=== PATIENT | female | born 1970 | race Caucasian/White ===

== ENCOUNTER 2016-04-23 19:05 | Emergency (ER) | payer SELFPAY ==
[2016-04-23] MEDS ORDERED: PREDNISONE 20 MG TABLET PO ONE (20:08)
[2016-04-23] MEDS ORDERED: IPRATROPIUM/ALBUTEROL 0.5-2.5 MG/3 ML AMPUL NEB ONE (20:09)
--- NOTE | 2016-04-23 20:11 | ER Document Report ---
ED Medical Screen (RME) - General Stated Complaint: FLU LIKE SYMPTOMS Notes: 45 year old smoker, c/o being sick x2 weeks, cough has worsened, some chills and body aches, sinus pain. Has home inhaler. Not had influenza vaccine. TRAVEL OUTSIDE OF THE [place] IN LAST 30 DAYS: No - Related Data Allergies/Adverse Reactions: No Known Allergies Allergy (Verified 12/24/15 08:08) Past Medical History Pulmonary Medical History: Reports: Hx Bronchitis Past Surgical History: Reports: Hx Orthopedic Surgery - Immunizations Hx Diphtheria, Pertussis, Tetanus Vaccination: No Physical Exam - Vital signs Vitals: Temp Pulse Resp BP Pulse Ox 99.4 F 104 H 17 117/87 H 95 04/23/16 19:54 04/23/16 19:54 04/23/16 19:54 04/23/16 19:54 04/23/16 19:54 - General General appearance: Appears well In distress: None - Respiratory Respiratory status: No respiratory distress. No: Labored, Tachypnea Breath sounds: Nonproductive cough, Other - coarse breath sounds, good air movement, very faint end expiratory wheeze Course - Vital Signs Vital signs: Temp Pulse Resp BP Pulse Ox 99.4 F 104 H 17 117/87 H 95 04/23/16 19:54 04/23/16 19:54 04/23/16 19:54 04/23/16 19:54 04/23/16 19:54
--- NOTE | 2016-04-23 21:15 | ER Document Report ---
ED General - General Chief Complaint: Flu Symptoms Stated Complaint: FLU LIKE SYMPTOMS Time seen by provider: 21:10 Notes: Patient is a 45 -year-old female that comes emergency department for chief complaint of 2 weeks of cough, chills, body aches, sinus pressure and pain. Patient smokes daily, has inhalers at home, unsure if she has a history of COPD diagnosed. Patient states she is coughing up yellow mucus. She has not had influenza vaccine. She denies any daily medications. Patient states she has been menopausal for 3 years. TRAVEL OUTSIDE OF THE [place] IN LAST 30 DAYS: No - Related Data Allergies/Adverse Reactions: No Known Allergies Allergy (Verified 12/24/15 08:08) Past Medical History - General Information source: Patient - Social History Smoking Status: Current Every Day Smoker Chew tobacco use (# tins/day): No Frequency of alcohol use: Occasional Drug Abuse: None Lives with: Family Family History: Reviewed & Not Pertinent Patient has suicidal ideation: No Patient has homicidal ideation: No Pulmonary Medical History: Reports: Hx Bronchitis Renal/ Medical History: Denies: Hx Peritoneal Dialysis Past Surgical History: Reports: Hx Orthopedic Surgery - Immunizations Hx Diphtheria, Pertussis, Tetanus Vaccination: No Review of Systems - Review of Systems Constitutional: See HPI EENT: See HPI Cardiovascular: No symptoms reported Respiratory: See HPI Gastrointestinal: No symptoms reported Genitourinary: No symptoms reported Female Genitourinary: No symptoms reported Musculoskeletal: No symptoms reported Skin: No symptoms reported Hematologic/Lymphatic: No symptoms reported Neurological/Psychological: No symptoms reported Physical Exam - Vital signs Vitals: Temp Pulse Resp BP Pulse Ox 99.4 F 104 H 17 117/87 H 95 04/23/16 19:54 04/23/16 19:54 04/23/16 19:54 04/23/16 19:54 04/23/16 19:54 Interpretation: Normal - General General appearance: Appears well, Alert In distress: None - HEENT Head: Normocephalic, Atraumatic Eyes: Normal Pupils: PERRL - Respiratory Respiratory status: No respiratory distress. No: Respiratory distress, Depressed respirations, Tachypnea Chest status: Nontender Breath sounds: Nonproductive cough, Other - Coarse breath sounds throughout Chest palpation: Normal - Cardiovascular Rhythm: Regular, Tachycardia - Borderline Heart sounds: Normal auscultation, S1 appreciated, S2 appreciated Murmur: No - Abdominal Inspection: Normal Distension: No distension Bowel sounds: Normal Tenderness: Nontender. No: Tender, Guarding - Back Back: Normal, Nontender. No: Tender - Extremities General upper extremity: Normal inspection, Nontender, Normal color, Normal ROM , Normal temperature General lower extremity: Normal inspection, Nontender, Normal color, Normal ROM , Normal temperature, Normal weight bearing. No: Kita's sign - Neurological Neuro grossly intact: Yes Cognition: Normal Orientation: AAOx4 [place] Coma Scale Eye Opening: Spontaneous [place] Coma Scale Verbal: Oriented [place] Coma Scale Motor: Obeys Commands Yang Coma Scale Total: 15 Speech: Normal Motor strength normal: LUE, RUE, LLE, RLE Sensory: Normal - Psychological Associated symptoms: Normal affect, Normal mood - Skin Skin Temperature: Warm Skin Moisture: Dry Skin Color: Normal Course - Re-evaluation Re-evalutation: Nonproductive cough, some coarse breath sounds initially, these resolved after DuoNeb treatment, afterwards patient states she feels significantly improved. Influenza negative, chest x-ray negative. Patient with tobacco abuse, persistent cough that has become productive, patient also has developing tenderness in her sinuses which are noted on exam, covering with azithromycin, treating for bronchitis with prednisone. Discussed smoking cessation detail, patient states that she quit, discussed x-ray abnormalities lack of pneumonia, discussed follow-up and return precautions. Patient states understanding and agreement. - Vital Signs Vital signs: Temp Pulse Resp BP Pulse Ox 98.4 F 97 16 104/67 97 04/23/16 22:13 04/23/16 22:13 04/23/16 22:13 04/23/16 22:13 04/23/16 22:18 Discharge - Discharge Clinical Impression: Productive cough, Tobacco abuse Sinusitis Qualifiers: Sinusitis location: unspecified location Chronicity: acute Recurrence: not specified as recurrent Qualified Code(s): J01.90 - Acute sinusitis, unspecified Condition: Stable Disposition: HOME, SELF-CARE Additional Instructions: Chest x-ray does not show pneumonia. Examination is consistent with sinus infection and bronchitis. Take azithromycin as directed, prednisone as directed, take the Lillian if needed for pain and cough. Drink plenty of fluids. Stop smoking. Follow-up with primary care. Return to the emergency department for any concerning or worsening symptoms. Prescriptions: Azithromycin [Zithromax 250 mg Tablet] 250 mg PO ASDIR PRN #6 tablet PRN Reason: Hydrocodone/Acetaminophen [Lillian 5-325 mg Tablet] 1 - 2 tab PO ASDIR #12 tablet Prednisone 20 mg PO DAILY #15 tablet Forms: Return to Work
[2016-04-23] MEDS ORDERED: HYDROCODONE/ACETAMINOPHEN 5-325 MG 6 TAB/DSPK PO PRN (21:34)
[2016-04-23 22:18] VITALS: BP 104/67
== END 2016-04-23 22:21 | disposition home or self-care (01) ==
LOC: ER 19:05
DX: R05 Cough (principal); J01.90 Acute sinusitis, unspecified; R68.83 Chills (without fever); R52 Pain, unspecified; R09.89 Other specified symptoms and signs involving the circulatory and respiratory systems; F17.200 Nicotine dependence, unspecified, uncomplicated
CPT/HCPCS: 94640; 99284; 87804; 71020; J7512; J7620

== ENCOUNTER 2016-08-19 04:35 | Emergency (ER) | payer SELFPAY ==
[2016-08-19] MEDS ORDERED: IPRATROPIUM/ALBUTEROL 0.5-2.5 MG/3 ML AMPUL NEB ONE (07:07)
[2016-08-19] MEDS ORDERED: PREDNISONE 20 MG TABLET PO ONE (07:07)
[2016-08-19] MEDS ORDERED: ALBUTEROL SULFATE 0.083% NEB 2.5 MG/3 ML AMPUL NEB ONE (07:07)
--- NOTE | 2016-08-19 07:55 | RADIOLOGY REPORT (SQ) ---
EXAM DESCRIPTION: CHEST PA/LAT COMPLETED DATE/TIME: 08/19/2016 7:39 am REASON FOR STUDY: sob COMPARISON: 04/23/2016. 12/24/2015. 02/03/2016. EXAM PARAMETERS: NUMBER OF VIEWS: two views TECHNIQUE: Digital Frontal and Lateral radiographic views of the chest acquired. RADIATION DOSE: NA LIMITATIONS: none FINDINGS: LUNGS AND PLEURA: Small scattered atelectasis or scar bilaterally and small right perihila r nodularity or vessel on end artifact without suspicious interval change. Moderate emphysematous hy perinflation. MEDIASTINUM AND HILAR STRUCTURES: No masses or contour abnormalities. HEART AND VASCULAR STRUCTURES: Heart normal size. No evidence for failure. BONES: No acute findings. HARDWARE: None in the chest. OTHER: No other significant finding. IMPRESSION: No suspicious interval change. TECHNICAL DOCUMENTATION: JOB ID: [id number] [employer]- All Rights Reserved
[2016-08-19] MEDS ORDERED: DOXYCYCLINE HYCLATE 100 MG TABLET PO ONE (08:42)
[2016-08-19] MEDS ORDERED: ALBUTEROL SULFATE HFA (90 MCG/PUFF) 8 GM MDI (1 MDI/ER DISP) IH ONE (09:29)
--- NOTE | 2016-08-19 09:38 | ER Document Report ---
ED General - General Chief Complaint: Cold Symptoms Stated Complaint: COUGH,BODY ACHES Time Seen by Provider: 08/19/16 07:03 TRAVEL OUTSIDE OF THE [place] IN LAST 30 DAYS: No - HPI Patient complains to provider of: Shortness of breath difficulty in breathing Notes: Patient coming in for evaluation of shortness of breath productive cough. Patient is a smoker has been diagnosed with COPD. Patient states feeling bad for approximately 1 week he had fevers and chills no recent travel. Patient denies any chest pain abdominal pain nausea vomiting diarrhea. Patient denies any recent use of antibiotics - Related Data Allergies/Adverse Reactions: No Known Allergies Allergy (Verified 08/19/16 07:06) Past Medical History - Social History Smoking Status: Current Every Day Smoker Cigarette use (# per day): No Chew tobacco use (# tins/day): No Frequency of alcohol use: Occasional Drug Abuse: None Family History: Reviewed & Not Pertinent Patient has suicidal ideation: No Patient has homicidal ideation: No Pulmonary Medical History: Reports: Hx Bronchitis - previous Renal/ Medical History: Denies: Hx Peritoneal Dialysis Past Surgical History: Reports: Hx Orthopedic Surgery - L ankle - Immunizations Hx Diphtheria, Pertussis, Tetanus Vaccination: No Review of Systems - Review of Systems Constitutional: No symptoms reported EENT: No symptoms reported Cardiovascular: No symptoms reported Respiratory: Short of breath Gastrointestinal: No symptoms reported Genitourinary: No symptoms reported Female Genitourinary: No symptoms reported Musculoskeletal: No symptoms reported Skin: No symptoms reported Hematologic/Lymphatic: No symptoms reported Neurological/Psychological: No symptoms reported -: Yes All other systems reviewed and negative Physical Exam - Vital signs Vitals: Temp Pulse Resp BP Pulse Ox 99 F 89 20 112/80 95 08/19/16 04:47 08/19/16 04:47 08/19/16 04:47 08/19/16 04:47 08/19/16 04:47 Interpretation: Normal - General General appearance: Appears well, Alert - HEENT Head: Normocephalic, Atraumatic Eyes: Normal Pupils: PERRL - Respiratory Respiratory status: No respiratory distress Chest status: Nontender Breath sounds: Productive cough, Rhonchi, Wheezing Chest palpation: Normal - Cardiovascular Rhythm: Regular Heart sounds: Normal auscultation Murmur: No - Abdominal Inspection: Normal Distension: No distension Bowel sounds: Normal Tenderness: Nontender Organomegaly: No organomegaly - Back Back: Normal, Nontender - Extremities General upper extremity: Normal inspection, Nontender, Normal color, Normal ROM , Normal temperature General lower extremity: Normal inspection, Nontender, Normal color, Normal ROM , Normal temperature, Normal weight bearing. No: Kita's sign - Neurological Neuro grossly intact: Yes Cognition: Normal Orientation: AAOx4 [place] Coma Scale Eye Opening: Spontaneous Yang Coma Scale Verbal: Oriented Yang Coma Scale Motor: Obeys Commands [place] Coma Scale Total: 15 Speech: Normal Motor strength normal: LUE, RUE, LLE, RLE Sensory: Normal - Psychological Associated symptoms: Normal affect, Normal mood - Skin Skin Temperature: Warm Skin Moisture: Dry Skin Color: Normal Course - Re-evaluation Re-evalutation: 08/19/16 14:09 Chest x-ray negative for any acute process. Patient was given a breathing treatment steroids and a dose of doxycycline here. More likely patient has significant bronchitis patient was encouraged to stop smoking patient will be discharged home with treatment for bronchitis patient states understanding 08/19/16 14:10 5 minutes of smoking cessation education was given to the patient. - Vital Signs Vital signs: Temp Pulse Resp BP Pulse Ox 98.5 F 96 17 98/61 L 91 L 08/19/16 09:57 08/19/16 09:57 08/19/16 09:57 08/19/16 09:57 08/19/16 09:57 Discharge - Discharge Clinical Impression: Bronchitis, Tobacco use, Smoking cessation education Condition: Good Disposition: HOME, SELF-CARE Instructions: Stop Smoking ([facility]), Bronchitis ([facility]), Inhaled Bronchodilators ( [facility]), Doxycycline ([facility]) Additional Instructions: Please use the inhaler that we gave you here today 2 puffs every 4 hours for the next 5 days take steroids and antibiotics as prescribed. Very important to stop smoking today and your symptoms. He may take Tylenol Motrin for pain control. Return to the ER symptoms worsen Prescriptions: Doxycycline Hyclate 100 mg PO BID #14 capsule Prednisone [Deltasone 20 mg Tablet] 3 tab PO DAILY 5 Days Forms: Return to Work Referrals: MARIELLE MCCABE MD [Primary Care Provider] - Follow up in 3-5 days
[2016-08-19 10:03] VITALS: BP 98/61
== END 2016-08-19 10:15 | disposition home or self-care (01) ==
LOC: ER 04:35
DX: J44.9 Chronic obstructive pulmonary disease, unspecified (principal); F17.200 Nicotine dependence, unspecified, uncomplicated
CPT/HCPCS: 94640 ×2; 99283; 71020; J7512; J3490; J7620

== ENCOUNTER 2019-02-17 14:34 | Emergency (ER) | payer SELFPAY ==
[2019-02-17] MEDS ORDERED: METOCLOPRAMIDE HCL INJ/PF 10 MG/2 ML SDV IV ONE (16:00)
--- NOTE | 2019-02-17 16:02 | ER Document Report ---
ED Medical Screen (RME) - General Chief Complaint: Dizziness Stated Complaint: BODY PAIN/DIZZINESS Time Seen by Provider: 02/17/19 15:56 Primary Care Provider: MARIELLE MCCABE MD [Primary Care Provider] - Follow up as needed Notes: Patient is a 48-year-old female who presents to the emergency department with a chief complaint of dizziness. Patient has also had a cough for the past week. Patient states that she started getting dizzy this morning and she also feels nauseous. She has not vomited. Exam: Awake alert and oriented. I have greeted and performed a rapid initial assessment of this patient. A comprehensive ED assessment and evaluation of the patient, analysis of test results and completion of medical decision making process will be conducted by an additional ED providers. TRAVEL OUTSIDE OF THE [place] IN LAST 30 DAYS: No - Related Data Allergies/Adverse Reactions: No Known Allergies Allergy (Verified 02/17/19 15:51) Past Medical History - Social History Chew tobacco use (# tins/day): No Frequency of alcohol use: None Drug Abuse: None Pulmonary Medical History: Reports: Hx Bronchitis - previous Renal/ Medical History: Denies: Hx Peritoneal Dialysis Past Surgical History: Reports: Hx Orthopedic Surgery - L ankle - Immunizations Hx Diphtheria, Pertussis, Tetanus Vaccination: No Physical Exam - Vital signs Vitals: Temp Pulse Resp BP Pulse Ox 98.1 F 63 16 98/68 L 98 02/17/19 14:42 02/17/19 14:42 02/17/19 14:42 02/17/19 14:42 02/17/19 14:42 Course - Vital Signs Vital signs: Temp Pulse Resp BP Pulse Ox 98.1 F 63 16 98/68 L 98 02/17/19 14:42 02/17/19 14:42 02/17/19 14:42 02/17/19 14:42 02/17/19 14:42 Doctor's Discharge - Discharge Referrals: MARIELLE MCCABE MD [Primary Care Provider] - Follow up as needed
[2019-02-17 16:51] LABS: ABSOLUTE BASOPHILS # (AUTO) 0.1 10^3/uL (0.0-0.2); ABSOLUTE EOSINOPHILS # (AUTO) 0.1 10^3/uL (0.0-0.6); ABSOLUTE LYMPHOCYTES (AUTO) 1.7 10^3/uL (0.5-4.7); ABSOLUTE MONOCYTES (AUTO) 0.5 10^3/uL (0.1-1.4); ABSOLUTE NEUT (AUTO) 5.8 10^3/uL (1.7-8.2); BASOPHILS % (AUTO) 0.9 % (0-2); EOSINOPHILS % (AUTO) 0.7 % (0-6); HEMATOCRIT 44.9 % (36.0-47.0); HEMOGLOBIN 15.5 g/dL (12.0-15.5); LYMPHOCYTES % (AUTO) 20.6 % (13-45); MEAN CORPUSCULAR HEMOGLOBIN 31.1 pg (27.0-33.4); MEAN CORPUSCULAR HGB CONC 34.4 g/dL (32.0-36.0); MEAN CORPUSCULAR VOLUME 90 fl (80-97); MONOCYTES % (AUTO) 6.3 % (3-13); PLATELET COUNT 319 10^3/uL (150-450); RED BLOOD COUNT 4.97 10^6/uL (3.72-5.28); RED CELL DISTRIBUTION WIDTH 12.4 % (11.5-14.0); SEGMENTED NEUTROPHILS % (AUTO) 71.5 % (42-78); TOTAL CELLS COUNTED % (AUTO) 100 %; WHITE BLOOD COUNT 8.1 10^3/uL (4.0-10.5)
--- NOTE | 2019-02-17 17:06 | RADIOLOGY REPORT (SQ) ---
EXAM DESCRIPTION: CHEST 2 VIEWS COMPLETED DATE/TIME: 02/17/2019 4:50 pm REASON FOR STUDY: dizziness COMPARISON: Chest radiographs 08/19/2016 EXAM PARAMETERS: NUMBER OF VIEWS: two views TECHNIQUE: Digital Frontal and Lateral radiographic views of the chest acquired. RADIATION DOSE: NA LIMITATIONS: none FINDINGS: LUNGS AND PLEURA: Scattered areas of scarring, unchanged. No new opacities, masses or pne umothorax. No pleural effusion. MEDIASTINUM AND HILAR STRUCTURES: No masses or contour abnormalities. HEART AND VASCULAR STRUCTURES: Heart normal size. No evidence for failure. BONES: No acute findings. HARDWARE: None in the chest. OTHER: No other significant finding. IMPRESSION: Unchanged chest. No acute pulmonary findings. TECHNICAL DOCUMENTATION: JOB ID: [id number] [employer]- All Rights Reserved Reading location - IP/workstation name: [email or web address]
[2019-02-17 17:10] LABS: ALBUMIN 4.5 g/dL (3.5-5.0); ALKALINE PHOSPHATASE 88 U/L (38-126); ANION GAP 9 (5-19); ASPARTATE AMINO TRANSFERASE 25 U/L (14-36); BILIRUBIN,DIRECT 0.2 mg/dL (0.0-0.4); BILIRUBIN,TOTAL 0.3 mg/dL (0.2-1.3); BLOOD UREA NITROGEN 12 mg/dL (7-20); CALCIUM 10.4 mg/dL (8.4-10.2); CARBON DIOXIDE 28 mmol/L (22-30); CHLORIDE 102 mmol/L (98-107); GLUCOSE 119 mg/dL (75-110); POTASSIUM 5.1 mmol/L (3.6-5.0); TOTAL PROTEIN 7.7 g/dL (6.3-8.2)
[2019-02-17 18:40] LABS: APPEARANCE,URINE SLIGHTLY-CLOUDY; BILIRUBIN,URINE NEGATIVE (NEGATIVE); COLOR,URINE YELLOW; GLUCOSE, URINE NEGATIVE (NEGATIVE); KETONES,URINE NEGATIVE (NEGATIVE); LEUKOCYTE ESTERASE,URINE SMALL (NEGATIVE); NITRITE,URINE NEGATIVE (NEGATIVE); PROTEIN,URINE NEGATIVE (NEGATIVE); URINE SPECIFIC GRAVITY 1.017; UROBILINOGEN,URINE NEGATIVE mg/dL (<2.0)
[2019-02-17] MEDS ORDERED: NORMAL SALINE 500 ML IV ONE (18:51)
--- NOTE | 2019-02-17 19:28 | ER Document Report ---
Entered by LUIS MCCABE SCRIBE 02/17/191915 Acting as scribe for:CHACHO QUINONES IV, MD ED Dizziness/Weakness - General Chief Complaint: Dizziness Stated Complaint: BODY PAIN/DIZZINESS Time Seen by Provider: 02/17/19 15:56 Primary Care Provider: MARIELLE MCCABE MD [NO LOCAL MD] - Follow up as needed Mode of Arrival: Ambulatory Information source: Patient Notes: This 48 year old female patient presents to the ED today with complaints of dizziness that began this morning prior to arrival. Patient states that she has also had a cough for the past x1 week. Patient reports nausea, but denies vomiting. TRAVEL OUTSIDE OF THE [place] IN LAST 30 DAYS: No - Related Data Allergies/Adverse Reactions: No Known Allergies Allergy (Verified 02/17/19 15:51) Past Medical History - General Information source: Patient, [facility], 1928–1983 Records - Social History Smoking Status: Current Every Day Smoker Chew tobacco use (# tins/day): No Smoking Education Provided: No Frequency of alcohol use: None Drug Abuse: None Family History: Reviewed & Not Pertinent Patient has suicidal ideation: No Patient has homicidal ideation: No Pulmonary Medical History: Reports: Hx Bronchitis - previous Past Surgical History: Reports: Hx Orthopedic Surgery - L ankle - Immunizations Hx Diphtheria, Pertussis, Tetanus Vaccination: No Review of Systems - Review of Systems Constitutional: No symptoms reported EENT: No symptoms reported Cardiovascular: See HPI, Dizziness Respiratory: See HPI, Cough Gastrointestinal: See HPI, Nausea. denies: Vomiting Genitourinary: No symptoms reported Female Genitourinary: No symptoms reported Musculoskeletal: No symptoms reported Skin: No symptoms reported Hematologic/Lymphatic: No symptoms reported Neurological/Psychological: No symptoms reported Physical Exam - Vital signs Vitals: Temp Pulse Resp BP Pulse Ox 98.1 F 63 16 98/68 L 98 02/17/19 14:42 02/17/19 14:42 02/17/19 14:42 02/17/19 14:42 02/17/19 14:42 - General General appearance: Alert In distress: None - HEENT Head: Normocephalic, Atraumatic Eyes: Normal Pupils: PERRL - Respiratory Respiratory status: No respiratory distress Chest status: Nontender Breath sounds: Normal Chest palpation: Normal - Cardiovascular Rhythm: Regular Heart sounds: Normal auscultation Murmur: No - Abdominal Inspection: Normal Distension: No distension Bowel sounds: Normal Tenderness: Nontender - Abdomen soft Organomegaly: No organomegaly - Back Back: Normal, Nontender - Extremities General upper extremity: Normal inspection General lower extremity: Normal inspection - Neurological Neuro grossly intact: Yes - Psychological Associated symptoms: Normal affect, Normal mood - Skin Skin Temperature: Warm Skin Moisture: Dry Skin Color: Normal Course - Vital Signs Vital signs: Temp Pulse Resp BP Pulse Ox 98.1 F 63 16 98/68 L 98 02/17/19 14:42 02/17/19 14:42 02/17/19 14:42 02/17/19 14:42 02/17/19 14:42 - Laboratory Result Diagrams: 02/17/19 16:26 02/17/19 16:26 Laboratory results interpreted by me: 02/17/19 02/17/19 16:26 18:05 Potassium 5.1 H Glucose 119 H Calcium 10.4 H Urine Blood SMALL H Ur Leukocyte Esterase SMALL H - EKG Interpretation by Me Additional EKG results interpreted by me: 02/17/19 19:28 EKG obtained on 03/16/2019 at 1632 hrs. was interpreted by this MD. Findings: Normal sinus rhythm, rate 77, normal axis, P waves preceding QRS complexes, QRS complexes appear narrow, there are no obvious patterns of ST segment elevation or depression to suggest acute myocardial ischemia or injury. Impression normal sinus rhythm with nonspecific ST segments. Discharge - Discharge Clinical Impression: Viral syndrome Condition: Good Disposition: HOME, SELF-CARE Instructions: Viral Syndrome ([facility]) Additional Instructions: Return to the Emergency Department without delay if any worse. HOME CARE INSTRUCTIONS & INFORMATION: Thank you for choosing us for your medical needs. We hope you're satisfied with the care you received. After you leave, you must properly care for your problem and, at the same time, observe its progress. Any condition can change. Some illnesses can change rapidly over hours or days. If your condition worsens, return to the Emergency Department or see your physician promptly. ABOUT YOUR X-RAYS AND EKG'S: If you had an EKG or X-rays taken, they have been read by the Emergency Physician. The X-rays and EKG's will also be read by a Radiologist or Photographic Aide within 24 hours. If discrepancies are noted, you will be notified by telephone. Please be certain the ED has a correct telephone number & address where you can be reached. Also, realize that some fractures or abnormalities do not show up on initial X-rays. If your symptoms continue, see your physician. ABOUT YOUR LABORATORY TEST: If you had laboratory tests, the results have been reviewed by the Emergency Physician. Some test results (for example cultures) may not be available for several days. You will be contacted if any test result shows you need additional treatment. Please be certain the ED has a correct telephone number and address where you can be reached. ABOUT YOUR MEDICATIONS: You will receive instructions on how to take your medicine on the prescription label you receive. Additional information may be provided by the Pharmacy. If you have questions afterwards, call the ED for clarification or further instructions. Some prescribed medications may cause drowsiness. Do not perform tasks such as driving a car or operating machinery without consulting your Pharmacist. If you feel you need a refill of pain medication, your condition will need re-evaluation. Please do not call for a refill of any medication. ABOUT YOUR SIGNATURE: Signature of this document acknowledges to followin. Understanding that you received emergency treatment and that you may be released before al medical problems are known or treated. Please be certain the ED has a correct phone number & address where you can be reached. 2. Acknowledgement that you will arrange for follow-up care as recommended. 3. Authorization for the Emergency Physician to provide information to your follow-up Physician in order to maximize your care. AT ANY TIME, IF YOUR SYMPTOMS CHANGE SIGNIFICANTLY OR WORSEN OR YOU DEVELOP NEW SYMPTOMS, RETURN TO THE EMERGENCY DEPARTMENT IMMEDIATELY FOR RE-EVALUATION. OUR GOAL IS TO PROVIDE EXCELLENT MEDICAL CARE! WE HOPE THAT WE HAVE MET YOUR EXPECTATIONS DURING YOUR EMERGENCY DEPARTMENT VISIT AND THAT YOU FEEL YOU HAVE RECEIVED EXCELLENT CARE! Referrals: MARIELLE MCCABE MD [NO LOCAL MD] - Follow up as needed I personally performed the services described in the documentation, reviewed and edited the documentation which was dictated to the scribe in my presence, and it accurately records my words and actions.
--- NOTE | 2019-02-17 19:42 | EKG REPORT ---
SEVERITY:- BORDERLINE ECG - SINUS RHYTHM BORDERLINE T ABNORMALITIES, ANT-LAT LEADS : Confirmed by: Fred Espinosa MD 17-Feb-2019 19:42:23
[2019-02-17 20:34] VITALS: BP 108/64
== END 2019-02-17 20:32 | disposition home or self-care (01) ==
LOC: ER 14:34
DX: B34.9 Viral infection, unspecified (principal); R42 Dizziness and giddiness; M79.10 Myalgia, unspecified site; R05 Cough; R11.0 Nausea; F17.200 Nicotine dependence, unspecified, uncomplicated
CPT/HCPCS: 93005; 99284; 96361; 96374; 36415; 85025; 80053; 81001; 71046; 93010; J2765; J7040